=== PATIENT | male | born 1995 | race Caucasian/White ===

== ENCOUNTER 2017-01-04 16:13 | Emergency (ER) | payer OTHER ==
[2017-01-04] MEDS ORDERED: CEPHALEXIN MONOHYDRATE 250 MG CAPSULE PO ONE (16:51)
--- NOTE | 2017-01-04 16:52 | ERNOTE ---
Medical Problem HPI - Narrative Date of Service: 01/04/17 - General Chief Complaint: Laceration Time Seen by Provider: 01/04/17 16:41 Source: patient, family Exam Limitations: no limitations - Immun/Allergies/Home Medications Immunizations: IMMUNIZATION HX Immunizations Up to Date Yes History of Influenza Vaccine No Hx Pneumococcal Vaccination No Allergies/Adverse Reactions: Allergies No Known Allergies Allergy (Verified 01/04/17 16:22) Home Medications: HOME MEDICATIONS Cephalexin [Keflex] 500 mg PO Q6H #28 capsule 01/04/17 [Last Taken Unknown] - History of Present History Narrative: Patient felt and landed on his face. Patient came for evaluation but does not want sutures to be place at this point. Timing: constant Severity: mild Modifying Factors - (Improves): Present: other - Nothing Modifying Factors - (Worsens): Present: other - Nothing Review of Systems - Review of Systems Constitutional: Present: no symptoms reported EYE: Present: no symptoms reported ENT: Present: no symptoms reported Respiratory: Present: no symptoms reported Cardiology: Present: no symptoms reported Gastrointestinal/Abdominal: Present: no symptoms reported Genitourinary: Present: no symptoms reported Musculoskeletal: Present: no symptoms reported Skin: Present: other - Laceration to the R supra orbital area. Neurological: Present: no symptoms reported Endocrine: Present: no symptoms reported Hematologic/Lymphatic: Present: no symptoms reported Psych: Present: no symptoms reported All Other Systems: All systems neg except as marked - Patient's Past Medical History Patient History - Medical: Depression Patient History - Cardiac/Respiratory: No pertinent hx Patient History - Cancer: No Hx of Cancer Patient History - Surgical Procedures: No surgical history Patient History - Other: None - Family History Grandmother-Paternal Family History - Medical: Other - Social History Living Situations: home Psych History: Hx of Depression Does anyone smoke in the home?: No Smoking Status: Current every day smoker Alcohol Use: occasionally Drug Use: marijuana - Immunizations Immunizations Up to Date: Yes Hx Pneumococcal Vaccination: No History of Influenza Vaccine: No Physical Exam - Physical Exam General Appearance: Present: wd/wn, alert, no apparent distress Eye Exam: Normal inspection: bilateral, PERRL: bilateral, EOMI: bilateral Ears, Nose, Throat: Present: normal ENT inspection Neck: Present: normal inspection, nontender Respiratory: Present: no respiratory distress Cardiovascular/Chest: Present: regular rate, rhythm, no murmur, normal peripheral pulses Gastrointestinal/Abdominal: Present: normal bowel sounds, nontender, soft Back Exam: Present: normal inspection, normal range of motion, no CVA tenderness , no vertebral tenderness Extremity Exam: Present: normal inspection, non-tender, normal range of motion, no edema Neurological Exam: Present: alert, oriented, normal mood/affect, no motor/ sensory deficits Skin Exam: Present: normal color, warm/dry, other - Patient has a R temporal side supra orbital laceration of 2cm. No FB was found and not bleeding Lymphatic Exam: Present: no adenopathy ED Progress - Date and Time Seen: Date and Time: 01/04/17 16:49 Patient refused stitches. Sterile Strips will be place by RN. - Vital Signs Patient's Vital Signs:: I have reviewed the patient's vital signs. Vital Signs: Vital Signs 01/04/17 16:19 Temperature 37 C Pulse Rate 81 Respiratory 16 Rate Blood Pressure 156/76 O2 Sat by Pulse 99 Oximetry - Progress/Reassessment Chief Complaint: Laceration Progress:: Unchanged - Transfer of Care Expected Disposition: Discharge Plan - Plan Plan: Follow up with Primary Care Provider. Departure - Departure Clinical Impression: Laceration of face Qualifiers: Encounter type: initial encounter Qualified Code(s): S01.81XA - Laceration without foreign body of other part of head, initial encounter Disposition: Home self-care Condition: Stable Instructions: Facial Laceration Referrals: Chris Butcher MD [Primary Care Provider] - Prescriptions: Cephalexin [Keflex] 500 mg PO Q6H #28 capsule
--- OUTSIDE RECORDS SUMMARY | 2017-01-04 16:59 | XMS REPORT | Continuity of Care Document ---
:1995 Author Organization [facility] ([facility]) Address [address] [place] [address] Phone [phone] Care Team Providers Name Role Phone Chris Samaniego Primary Care Provider [phone] Source Comments This disclosure is being made pursuant to the Care Everywhere program, applicable federal and state laws, and may not contain all informaitonavailable regarding this patient.[facility] ([facility]) Active Allergies and Adverse Reactions Not on File Current Medications Not on file Active Problems Not on file Social History Tobacco Use Types Packs/Day Years Used Date Never Assessed Plan of Care Health Maintenance Due Date Last Done Comments Hepatitis B Vaccine (1 of 3 - Primary Series) 1997 HPV Vaccine (1 of 3 - Male 3 Dose Series) 2008 Tdap Vaccine 2008 Meningococcal Vaccine (1 of 1) 2013 Lipid Disorder Screening 2015 MMR Vaccine 2015 Td Vaccine 2015 Varicella Vaccine (1 of 2 - Adult - No Evidence of 2015 Immunity) Influenza Vaccine: Seasonal (#1) 04/16/2016 Results from Last 3 Months Not on file
[2017-01-04 18:11] VITALS: BP 144/70
== END 2017-01-04 17:00 | disposition home or self-care (01) ==
LOC: ER 16:13
DX: S01.81XA Laceration without foreign body of other part of head, initial encounter (principal); W19.XXXA Unspecified fall, initial encounter; F17.210 Nicotine dependence, cigarettes, uncomplicated

== ENCOUNTER 2017-02-21 17:49 | Emergency (ER) | payer OTHER ==
[2017-02-21 17:54] VITALS: BP 157/76
[2017-02-21] MEDS ORDERED: PENICILLIN G BENZATHINE 2 ML SYRG IM ONE ×2 (18:27→18:31)
--- NOTE | 2017-02-21 18:33 | ERNOTE ---
ENT HPI Date of Service: 02/21/17 Presenting Symptoms: other - sore throat Time Seen by Provider: 02/21/17 18:23 Source: patient Exam Limitations: no limitations - Immun/Allergies/Home Medications Immunizations: IMMUNIZATION HX Immunizations Up to Date Yes History of Influenza Vaccine No Hx Pneumococcal Vaccination No Allergies/Adverse Reactions: Allergies Allergy/AdvReac Type Severity Reaction Status Date / Time No Known Allergies Allergy Verified 02/21/17 17:54 Home Medications: HOME MEDICATIONS NK [No Home Medication] 02/21/17 [Last Taken Unknown] - History of Present Illness Narrative: 21-year-old male presenting to the emergency room for sore throat 3 days. States that he was having a fever yesterday and he had the sweats as well. Patient states it feels like he swallowing glass Date (Duration): 02/21/17 Severity: Present: mild ENT Location: Present: throat Prearrival Treatment: Present: no prearrival treatment Modifying Factors - Improves: Reports: nothing Modifying Factors - Worsens: Reports: nothing Associated Symptoms - ENT: Reports: fever, malaise, poor fluid intake, voice change, sore throat, headache. Denies: nasal congestion/drainage, facial pain/ swelling Review of Systems - Narrative Narrative: c/o feeling bad, sore throat, fever/chills last night. - Review of Systems Constitutional: Present: See HPI, chills EYE: Present: no symptoms reported ENT: Present: See HPI Respiratory: Present: no symptoms reported Cardiology: Present: no symptoms reported Gastrointestinal/Abdominal: Present: no symptoms reported Genitourinary: Present: no symptoms reported Musculoskeletal: Present: no symptoms reported Skin: Present: no symptoms reported Neurological: Present: no symptoms reported Endocrine: Present: no symptoms reported Hematologic/Lymphatic: Present: See HPI, swollen glands Psych: Present: no symptoms reported - Patient's Past Medical History Patient History - Medical: Depression Patient History - Cardiac/Respiratory: No pertinent hx Patient History - Cancer: No Hx of Cancer Patient History - Surgical Procedures: No surgical history Patient History - Other: None - Family History Grandmother-Paternal Family History - Medical: Other - Social History Living Situations: home Psych History: Hx of Depression Does anyone smoke in the home?: No Smoking Status: Current every day smoker Have you smoked in the past 12 months: Yes Alcohol Use: occasionally Drug Use: marijuana - Immunizations Immunizations Up to Date: Yes Hx Pneumococcal Vaccination: No History of Influenza Vaccine: No Physical Exam - Physical Exam Narrative: swollen tonsils and red throat observed, swollen lymphnodes. General Appearance: Present: wd/wn, alert, no apparent distress Eye Exam: Normal inspection: bilateral Ears, Nose, Throat: Present: pharyngeal erythema, tonsillar swelling Neck: Present: supple, full range of motion, lymphadenopathy (R), lymphadenopathy (L) Respiratory: Present: no respiratory distress, normal breath sounds, no accessory muscle use, chest nontender, lungs clear Cardiovascular/Chest: Present: regular rate, rhythm, no murmur, normal peripheral pulses Gastrointestinal/Abdominal: Present: normal bowel sounds, soft Back Exam: Present: normal inspection, no vertebral tenderness Extremity Exam: Present: normal inspection, normal range of motion, no edema Neurological Exam: Present: alert, oriented, normal mood/affect, no motor/ sensory deficits Skin Exam: Present: normal color, warm/dry. Absent: skin rash Lymphatic Exam: Present: other - bilateral ED Progress - Results and Orders Patient's Lab Results:: I have reviewed the patient's lab results. Results and Orders: negative strep test, culture to follow - Vital Signs Patient's Vital Signs:: I have reviewed the patient's vital signs. Vital Signs: Vital Signs 02/21/17 17:52 Temperature 37.3 C Pulse Rate 112 H Respiratory 14 Rate Blood Pressure 157/76 O2 Sat by Pulse 99 Oximetry - Progress/Reassessment Chief Complaint: Sore Throat Departure Clinical Impression: Strep pharyngitis - Departure Disposition: Home self-care Condition: Stable Instructions: Rapid Strep Test, Strep Throat, [id number] Additional Instructions: Continue previous home medications. Return to emergency room if symptoms persist or become worse. Follow-up through primary care in the next 2-3 days if needed.
--- OUTSIDE RECORDS SUMMARY | 2017-02-21 18:34 | XMS REPORT | Continuity of Care Document ---
:1995 Author Organization [facility] ([facility]) Address [address] [place] [address] Phone [phone] Care Team Providers Name Role Phone Chris Samaniego Primary Care Provider [phone] Source Comments This disclosure is being made pursuant to the Care Everywhere program, applicable federal and state laws, and may not contain all informaitonavailable regarding this patient.[facility] ([facility]) Active Allergies and Adverse Reactions Not on [...]
== END 2017-02-21 18:56 | disposition home or self-care (01) ==
LOC: ER 17:49
DX: J02.0 Streptococcal pharyngitis (principal); Z72.0 Tobacco use

== ENCOUNTER 2017-10-14 16:54 | Emergency (ER) | payer SELFPAY ==
--- NOTE | 2017-10-14 17:04 | ERNOTE ---
Date of Service: 10/14/17 Time Seen by Provider: 10/14/17 17:03 Stated Complaint: COUGH Presenting Symptoms:: cough Source: patient, RN notes reviewed Exam Limitations: no limitations Immunizations: IMMUNIZATION HX Immunizations Up to Date Yes History of Influenza Vaccine No Hx Pneumococcal Vaccination No Allergies/Adverse Reactions: Allergies No Known Allergies Allergy (Verified 02/21/17 17:54) Home Medications: HOME MEDICATIONS NK [No Home Medication] 02/21/17 [Last Taken Unknown] - History of Present Ilness Narrative: 22 year old male presents to the ED for a cough that began 4 days ago. He believes he has had a fever. He is currently afebrile and has not taken any medication today. Date (Duration): 10/10/17 Frequency/Possible Cause: Reports: unknown cause Associated Symptoms: Reports: cough, nasal congestion, nasal drainage, headache , sore throat, fever/chills. Denies: chest pain/soreness, shortness of breath, wheezing, facial pain, lightheadedness, earache, muscle aches Prior Treatment: Denies: recently seen Review of Systems - Review of Systems Constitutional: Present: chills, fatigue, malaise EYE: Absent: eye pain, eye discharge ENT: Present: nose congestion, nasal drainage, sore throat. Absent: ear pain Respiratory: Present: cough. Absent: shortness of breath, wheezing Cardiology: Absent: chest pain, syncope Gastrointestinal/Abdominal: Absent: nausea, abdominal pain Genitourinary: Present: no symptoms reported Musculoskeletal: Absent: muscle pain, joint pain Skin: Absent: rash, lesions Neurological: Present: headache. Absent: dizziness/light-headedness Endocrine: Present: no symptoms reported Hematologic/Lymphatic: Present: no symptoms reported Psych: Present: no symptoms reported - Patient's Past Medical History Patient History - Medical: Depression Patient History - Cardiac/Respiratory: No pertinent hx Patient History - Cancer: No Hx of Cancer Patient History - Surgical Procedures: No surgical history Patient History - Other: None - Family History Grandmother-Paternal Family History - Medical: Other - Social History Living Situations: home Psych History: Hx of Depression Smoking Status: Current every day smoker Cigarettes Packs Per Day: 0.5 Have you smoked in the past 12 months: Yes Do you dip or chew tobacco: No Alcohol Use: none Drug Use: marijuana - Immunizations Immunizations Up to Date: Yes Hx Pneumococcal Vaccination: No History of Influenza Vaccine: No Physical Exam - Physical Exam General Appearance: Present: wd/wn, alert, no apparent distress Head Exam: Present: normal inspection Eye Exam: Normal inspection: bilateral Ears, Nose, Throat: Present: nasal congestion, pharyngeal erythema. Absent: abnormal TM (R), abnormal TM (L), sinus pain/drainage, pharyngeal swelling Neck: Present: normal inspection, nontender, supple Respiratory: Present: no respiratory distress, normal breath sounds, no accessory muscle use, lungs clear Cardiovascular/Chest: Present: regular rate, rhythm, no murmur Neurological Exam: Present: alert, oriented, normal mood/affect Skin Exam: Present: normal color, warm/dry ED Progress - Results and Orders Patient's Lab Results:: I have reviewed the patient's lab results. - Vital Signs Patient's Vital Signs:: I have reviewed the patient's vital signs. Vital Signs: Vital Signs 10/14/17 16:58 Temperature 36.5 C Pulse Rate 93 Respiratory 16 Rate Blood Pressure 131/81 O2 Sat by Pulse 100 Oximetry - Progress/Reassessment Chief Complaint: Cough Progress:: Unchanged Departure Clinical Impression: Upper respiratory infection, viral - Departure Disposition: Home self-care Condition: Good Instructions: Upper Respiratory Infection, Adult, [id number] Additional Instructions: Increase fluid intake Humidifier Nasal saline spray as needed Tylenol and/or ibuprofen for pain/fever Follow up with your doctor if you have not improved by the end of the week or beginning of next week
[2017-10-15 08:38] VITALS: BP 131/81
== END 2017-10-14 18:05 | disposition home or self-care (01) ==
LOC: ER 16:54
DX: F17.210 Nicotine dependence, cigarettes, uncomplicated; J06.9 Acute upper respiratory infection, unspecified